=== PATIENT | female | born 1995 | race African-American/Black ===

== ENCOUNTER 2020-06-30 04:23 | Emergency (ER) | payer OTHER, MEDICAID ==
[~2020-06-30] VITALS: Ht 170.2 cm; Wt 53.0 kg
[2020-06-30] MEDS ORDERED: KETOROLAC 30MG/ML VIAL IM ONE (08:15)
[2020-06-30 08:24] VITALS: BP 96/55
== END 2020-06-30 09:50 | disposition home or self-care (01) ==
LOC: ER 04:23
DX: S52.601A Unspecified fracture of lower end of right ulna, initial encounter for closed fracture (principal); Z88.8 Allergy status to other drugs, medicaments and biological substances; W01.0XXA Fall on same level from slipping, tripping and stumbling without subsequent striking against object, initial encounter; Y93.89 Activity, other specified; Y92.89 Other specified places as the place of occurrence of the external cause; Y99.8 Other external cause status
CPT/HCPCS: 29125; 73090; 73110; 96372; 99284; J1885